=== PATIENT | male | born 1945 ===

== ENCOUNTER 2025-04-22 10:50 | Outpatient (AMB) | payer MEDICARE, OTHER, SELFPAY ==
[2025-04-22 10:58] VITALS: BP 147/78; PULSE 79; RESP 18; O2SAT 98; BMI 27.0
--- NOTE | 2025-04-22 10:58 | A.OFFVIS_ITS ---
Vital Signs 04/22/25 10:58 Height 5 ft 8 in Weight 177 lb 8 oz BMI 27.0 BP 147/78 H Blood Pressure Location Lt brachial Position Sitting Respiration 18 Pulse 79 Pulse Source Pulse Oximeter Pulse Oximetry (%) 98 Oxygen Delivery Method Room Air Intake Visit Reasons: Sacrolitis not elsewhere classified Allergies No Known Allergies Allergy (Verified 04/22/25 11:00) HPI Comments Details: Luis is very pleasant 80 years old gentleman who presents in my office with complains on very minor discomfort in the area of the right hip. He also states that he had a pain in the projection of the sacroiliac joint in the past but he received injection from Dr. Gama in November of 2024 and now he experiences no pain in the sacroiliac joint. He also received the injection into the right hip area however he states that this right hip area injection did not help him and he still experiences minor discomfort there. In fact he was referred here by Dr. Gama to have sacroiliac joint fusion to be performed. According to this patient his pain is minimal at this time and he is able to sleep normally, he can do activities of daily living, he states that he can climb ladders, perform grass mowing and he tries to stay very active. He has sacroiliac joint belt in his possession but he refuses to wear it all the time and he is able to put it only when he is in bed. In terms of tissue damage he describes his pain as sore and aching sensation. He never had physical therapy. I offered him to send him to physical therapy but he adamantly refused. He stated that in the past he had physical therapy which was absolutely not helpful for him. He received oxycodone and Advil to help his pain. He reports that oxycodone eliminates all of his pains however he is not taking it because he is afraid of addiction. His past medical history significant for hypertension coronary artery disease conge stive heart failure and status post CABG and aortic valve replacement. He also had history of bilateral shoulder replacement and toe fusion. He is currently on Eliquis. He denies smoking cigarettes admits drinking 1 bottle of beer a week he denies recreational drugs and he drinks 1 cup of coffee a day. Review of Systems Const All systems reviewed & are unremarkable except as noted in HPI and below ENT Reports Normal hearing present Neuro Reports Normal hearing present, Denies Abnormal speech present, Denies confusion and Denies Sensory deficit (Neuro) Psych Denies confusion Physical Exam Vital Signs: Last Vital Signs Pulse 79 04/22/25 10:58 Resp 18 04/22/25 10:58 BP 147/78 H 04/22/25 10:58 Pulse Ox 98 04/22/25 10:58 Oxygen Delivery Method Room Air 04/22/25 10:58 BMI result Body Mass Index 27.0 Const General: no acute distress; No confusion Orientation/consciousness: patient oriented x3 and No confusion Eyes General: appearance normal, both eyes and all related structures Pupils: Equal, round and reactive pupils present EOM: EOMs intact bilaterally Neck Neck: Yes full ROM Chest Chest palpation & inspection: normal inspection of the chest Resp Effort & Inspection: normal respiratory effort, able to speak in complete sentences, normal respiratory pattern, no audible wheezes and no cough Cardio Jugular venous distension: no JVD GI Inspection: Yes normal to inspection Back/Spine/Pelvis Other: No tenderness on palpation in the projection of the left sacroiliac joint, there is minor tenderness on palpation in the projection slightly posterior of the trochanter on the right. Neuro General: patient oriented x3, gait normal and No confusion Cranial nerves: Yes CN's II-XII intact bilaterally, Yes Equal, round and reactive pupils present, Yes Normal hearing present and Yes Ability to bilaterally elevate shoulders present Speech: No Abnormal speech present Gait exam (Neuro): Normal gait present Motor exam (neuro): 5/5 motor strength present throughout Sensory Exam: No Sensory deficit (Neuro) Extrem General: No pedal edema Psych Speech and movement: Normal speech and movement present Affect: normal affect Attitude: cooperative Thought process: Normal thought process present Thought content: Normal thought content present Insight: Good insight present (Psych) Judgement: Good judgement present (Psych) Assessment & Plan Assessment & Plan (1) Chronic left SI joint pain: Code(s): M53.3 - Sacrococcygeal disorders, not elsewhere classified; G89.29 - Other chronic pain Category: Medical (2) Sacroiliitis: Code(s): M46.1 - Sacroiliitis, not elsewhere classified Category: Medical (3) Trochanteric bursitis: Code(s): M70.60 - Trochanteric bursitis, unspecified hip Category: Medical (4) Iliotibial band syndrome, left leg: Code(s): M76.32 - Iliotibial band syndrome, left leg Category: Medical Plan It looks like that injection the patient received in November of this year from Dr. Gama is still working and he does not experience any discomfort from the left SI joint. He has pain in the projection of the right trochanter but he states that this pain is no more than just a nuisance and he can not tolerated. I offered him to go for physical therapy for this condition but he refused. I told him that if he would start to feel sacroiliac joint pain again on the left he is welcome to come back and we will discuss sacroiliac joint fusion. However if patient would decide to go for the fusion I would need to have a conservation officer clearance to permit me to stop his Eliquis for 4 days. Coding Level of Care Code New Pt Level 3 (97497) Diagnoses Chronic left SI joint pain M53.3; G89.29 Sacroiliitis M46.1 Trochanteric bursitis M70.60 Iliotibial band syndrome, left leg M76.32
--- OUTSIDE RECORDS SUMMARY | 2025-04-22 13:36 | XMS_ITS | Encounter Summary ---
Author Organization [facility] Address [address] [facility] [address] [place] [address] Phone Care Team Providers Care Fluxer Name Role Phone Alan Oconnor MD Primary Care Provider Florina Bellamy Primary Care Provider [phone] Florina Bellamy Unavailable [phone] Encounter Details Date Type Department Care Team (Late st Contact Info) Description 08/15/2022 Procedure Pass Echo Lab [address] [place] [address] Social History Tobacco Use Types Packs/Day Years Used Date Smoking Tobacco: Former Cigars Smokeless Tobacco: Never Alcohol Use Standard Drinks/Week Comments Yes 0 (1 standard drink = 0.6 oz pur e alcohol) 3 beers a week Sex and Gender Information Value Date Recorded Sex Assigned at Not on file Legal Sex Male 10:06 PM EDT Gender Identity Not on file Sexual Orientation Not on file documented as of this encounter Plan of Treatment Upcoming Encounters Date Type Department Care Team (Latest Contact Info) Description 05/18/2025 11:20 AM EDT Ancillary Procedure [facility] [address] [place] [address] 3rd Floor, [address] [place], [place] [phone] Keshawn Flaherty MD [address] [facility], [address] [place] [address] [phone] [email or web address] documented as of this encounter Visit Diagnoses Not on filedocumented in this encounter Care Teams Fluxer Relationship Specialty Start Date End Date Alan Oconnor MD [address] [place] [address] [email or web address] PCP - General 05/17/17 05/24/23 Florina Bellamy [address] [place] [address], [address] [place] [address] [email or web address] PCP - General Family Medicine 05/25/23 Florina Bellamy [address] [place] [address], [address] [place] [address] [email or web address] Insurance Assigned Provider 11/02/24 documented as of this encounter Additional Source Comments The information contained in this document represents components of the legal health record. It is not the complete legal health record.[facility]
--- OUTSIDE RECORDS SUMMARY | 2025-04-22 13:36 | XMS_ITS | Clinical Summary ---
Author Organization [facility] Address [facility] [place] [address] Care Team Providers Care Instruction Dean Name Role Phone None Primary Care Provider Unavailabl e Allergies No known active allergies Medications levothyroxine (SYNTHROID) 137 mcg tablet 07/07/2010 Active aspirin 81 mg EC tablet 07/07/2010 Active vitamin E 400 unit capsule 07/07/2010 Active ascorbic acid (VITAMIN C) 500 mg tablet 07/07/2010 Active SAW PALMETTO ORAL 07/07/2010 Active co-enzyme Q-10 (CO Q-10) 50 mg capsule 07/07/2010 Active OXYcodone (ROXICODONE) 5 mg immediate release tablet 5M-3 tabs Tablet(s), PO, Q4H PRN 07/07/2010 Active amoxicillin (AMOXIL) 500 mg capsule 2000 MG = 4 Capsule(s) , PO, X 1 07/13/2010 Active Immunizations Immunization Administration Dates Next Due Influenza Vaccine, Whole 04/29/2009 Social History Tobacco Use Types Packs/Day Years Used Date Smoking Tobacco: Never Assessed Sex and Gender Information Value Date Recorded Sex Assigned at Not on file Legal Sex Male 7:14 AM EST Gender Identity Not on file Sexual Orientation Not on file Plan of Treatment Health Maintenance Due Date Last Done Comments Hepatitis C Screening 1963 Tetanus/Diphtheria/Pertussis Vaccines (1 - Tdap) 03/02 Pneumoccocal Vaccine: 50+ (1 of 1 - PCV) 1997 Zoster vaccine (1 of 2) 1997 Advance Directive 2002 RSV Vaccine (1 - 1-dose 75+ series) 2022 Covid-19 Vaccine ( season) 2025 Influenza (Flu) vaccine (1 o f 1 - Influenza standard series) 03/30/2025 04/29/2009 Care Teams Instruction Dean Relationship Specialty Start Date End Date None None PCP - General 08/08/24
--- OUTSIDE RECORDS SUMMARY | 2025-04-22 13:36 | XMS_ITS | Encounter Summary ---
Author Organization [facility] Address [address] [facility] [address] [place] [phone] Phone Care Team Providers Care Mandarin Speaking Nanny Name Role Phone Florina Bellamy Primary Care Provider [phone] Florina Bellamy Unavailable [phone] Encounter Details Date Type Department Care Team (Late st Contact Info) Description 02/11/2025 Procedure Pass Echo Lab [place] [place] [address] Social History Tobacco Use Types Packs/Day Years Used Date Smoking Tobacco: Former Cigars Q uit: 2018 Smokeless Tobacco: Never Comments:Smoked a cigar ever y once in a while. Alcohol Use Standard Drinks/Week Comments Yes 0 (1 standard drink = 0.6 oz pur e alcohol) 3 beers a week Home Health Assessment: Transportation Answer Date Recorded Lack of Transportation (Medical) No 12/05/2024 Lack of Transportation (Non-Medical) No 12/05/2024 Patient Unable or Declines to Respond No 12/05/2024 Child or Family Care Answer Date Record ed Do you have problems with on e of the following making it difficult for you to work, study, or receive health care? No 11/01/2023 Education Answer Date Recorded Are you interested in more education? Not on adolof e 11/24/2022 Are you concerned about learning? Not on file 11/24/2022 No 11/24/2022 No 11/24/2022 Food Answer Date Recorded Within the past 6 months we worried whether our food would run out before we got money to buy more. Never True 11/01/2023 Within the past 6 months the food we bought just didn't last and we didn't have enough money to get more. Never True Residential Stability Answer Date Recor ded What is your housing situation today? I have rachele sing 11/01/2023 How many times have you move d in the past 12 months? Zero (I did not move) 11/01/2023 Paying for Meds Answer Date Recorded Do you have trouble paying for medicines? No 11/01/2023 Paying Utility Bills Answer Date Record ed Do you have trouble paying your heating or elect ricity bill? No 11/01/2023 Transportation Answer Date Recorded Has the lack of transportati on kept you from medical appointments or from getting medications? No 11/01/2023 Digital Access Answer Date Recorded Yes 11/01/2023 No 11/01/2023 Do you have reliable internet access at home? No 11/01/2023 Do you have a device (e.g., phone, tablet, computer) with a working camera? No 11/01/2023 Intimate Partner Violence Answer Date R ecorded Denied Basic Needs Not on file 11/10/2024 In the past 12 months have y ou been in a relationship with a person who hurts, threatens, or tries to control you? No 11/10/2024 Worried food would run out Not on file 11/10 In the past 12 months have y ou been in a relationship with a person who hurts, threatens, or tries to control you? No 11/10/2024 Sex and Gender Information Value Date Recorded Sex Assigned at Not on file Legal Sex Male 10:06 PM EDT Gender Identity Not on file Sexual Orientation Not on file documented as of this encounter Plan of Treatment Upcoming Encounters Date Type Department Care Team (Latest Contact Info) Description 05/18/2025 11:20 AM EDT Ancillary Procedure [facility] [address] [place] [address] [address]rd Floor, [address] [place] [address] Keshawn Flaherty MD [address] [facility], [address] [place], [place] [phone] [email or web address] documented as of this encounter Visit Diagnoses Not on filedocumented in this encounter Additional Health Concerns Assessment Noted Time PHQ-2 Depression Total Score: 0 11/11/19 25 10:13 AM EDT documented as of this encounter Care Teams Mandarin Speaking Nanny Relationship Specialty Start Date End Date Florina Bellamy [address] [place] [address], [address] [place] [address] [email or web address] PCP - General Family Medicine 05/25/23 Florina Bellamy [address] [place] [address], [address] [place] [address] [email or web address] Insurance Assigned Provider 11/02/24 documented as of this encounter Additional Source Comments The information contained in this document represents components of the legal health record. It is not the complete legal health record.[facility]
--- OUTSIDE RECORDS SUMMARY | 2025-04-22 13:36 | XMS_ITS | Encounter Summary ---
Author Organization [facility] Address [address] [facility] [address] [place] [address] Phone Care Team Providers Care Protein Chemist Name Role Phone Florina Bellamy Primary Care Provider Florina Bellamy Unavailable [phone] Encounter Details Date Type Department Care Team (Late st Contact Info) Description 11/02/2023 Procedure Pass Echo Lab [place] [place] [address] Social History Tobacco Use Types Packs/Day Years Used Date Smoking Tobacco: Former Cigars Q uit: 2018 Smokeless Tobacco: Never Comments:Smoked a cigar ever y once in a while. Alcohol Use Standard Drinks/Week Comments Yes 0 (1 standard drink = 0.6 oz pur e alcohol) 3 beers a week Child or Family Care Answer Date Record ed Do you have problems with on e of the following making it difficult for you to work, study, or receive health care? No 11/01/2023 Education Answer Date Recorded Are you interested in more education? Not on adolfo e 11/24/2022 Are you concerned about learning? [...] your housing situation today? I have rachele madison 11/01/2023 How many times have you move [...] ecorded Denied Basic Needs Not on file 08/02/2023 In the past 12 months have y ou been in a relationship with a person who hurts, threatens, or tries to control you? No 08/02/2023 Worried food would run out Not on file 08/02 In the past 12 months have y ou been in a relationship with a person who hurts, threatens, or tries to control you? No 08/02/2023 Sex and Gender Information Value Date Recorded Sex Assigned at Not on file Legal Sex Male 10:06 PM EDT Gender Identity Not on file Sexual Orientation Not on file documented as of this encounter Plan of Treatment Upcoming Encounters Date Type Department Care Team (Latest Contact Info) Description 05/18/2025 11:20 AM EDT Ancillary Procedure [facility] [address] [place] [address] [address]rd Floor, [address] [place] [address] Keshawn Flaherty MD [address] [facility], [address] [place] [address] [email or web address] documented as of this encounter Visit Diagnoses Not on filedocumented in this encounter Additional Health Concerns Assessment Noted Time PHQ-2 Depression Total Score: 0 11/01/19 24 10:24 AM EDT documented as of this encounter Care Teams Protein Chemist Relationship Specialty Start Date End Date Florina Bellamy [address] [facility], [address] [place] [address] [email or web address] PCP - General Family Medicine 05/25/23 Florina Bellamy [address] [facility], [address] [place] [address] [email or web address] Insurance Assigned Provider 11/02/24 documented as of this encounter Additional Source Comments The information contained in this document represents components of the legal health record. It is not the complete legal health record.[facility]
--- OUTSIDE RECORDS SUMMARY | 2025-04-22 13:38 | XMS_ITS | Encounter Summary ---
Author Organization [facility] Address [address] [facility] [address] [place] [address] Phone Care Team Providers Care Pipe And Test Supervisor Name Role Phone Florina Bellamy Primary Care Provider Florina Bellamy Unavailable [phone] Encounter Details Date Type Department Care Team ([facility] Contact Info) Description 09/23/2024 Procedure Pass [facility] [address] [place] [address] Social History Tobacco Use Types Packs/Day Years [...] Description 05/18/2025 11:20 AM EDT Ancillary Procedure [facility] [address] [place] [address] 3rd Floor, [address] [place] [address] Keshawn Flaherty MD [address] [facility], [address] [place] [address] [email or web address] documented as of this encounter Visit Diagnoses Not on filedocumented in this encounter Additional Health Concerns Assessment Noted Time PHQ-2 Depression Total Score: 0 11/01/19 24 10:24 AM EDT documented as of this encounter Care Teams Pipe And Test Supervisor Relationship Specialty Start Date End Date Florina Bellamy [address] [facility], [address] [place] [address] [email or web address] PCP - General Family Medicine 05/25/23 Florina Bellamy [address] [facility], [address] [place] [address] [email or web address] Insurance Assigned Provider 11/02/24 documented as of this encounter Additional Source Comments The information contained in this document represents components of the legal health record. It is not the complete legal health record.[facility]
--- OUTSIDE RECORDS SUMMARY | 2025-04-22 13:38 | XMS_ITS | Encounter Summary ---
Author Organization [facility] Address [address] [facility] [address] [place] [address] Phone Care Team Providers Care Boarder Machine Name Role Phone Alan Oconnor MD Primary Care Provider [phone] Florina Bellamy Primary Care Provider [phone] Florina Bellamy Unavailable [phone] Reason for Referral * Outpatient Procedure - Closed Specialty Diagnoses / Procedures Referred By Ciaran swanson Referred To Contact Diagnoses Aortic valve stenosis with insufficiency, unspecified etiology Procedures Adult Echo TTE Alan Oconnor MD Phone: tel: fax: [email or web address] Referral ID Status Reason Start Date Expiration Date Visits Re quested Visits Authorized [id number] Closed 08/15/2022 08/15/2023 1 1 Encounter Details Date Type Department Care Team (Latest Contact Info) Description 08/15/2022 Transcribe Orders Virtual Department [address] [place] [address] Alan Oconnor MD [address] [place] [id number] [email or web address] Aortic valve stenosis with insufficiency, unspecified etiology Social History Tobacco Use Types Packs/Day Years [...] Description 05/18/2025 11:20 AM EDT Ancillary Procedure [facility] [address] [place] [address] [address]rd Floor, [address] [place] [address] Keshawn Flaherty MD [address] [place] [address], [address] [place] [address] [email or web address] documented as of this encounter Results * TTE COMPREHENSIVE (11/15/2022 1:14 PM EDT) Anatomical Region Laterality Modality Heart Ultrasound Narrative 11/16/2022 4:23 PM EDT See scanned report Procedure Note Remberto Frazier MD - 11/16/2022 See scanned report us Alan Oconnor MD CV ECHO ORDERABLES Final Res ult documented in this encounter Visit Diagnoses Diagnosis Aortic valve stenosis with insufficiency, unspecified etiology Aortic valve stenosis with insufficiency, unspecified etiology documented in this encounter Care Teams Boarder Machine Relationship Specialty Start Date End Date Alan Oconnor MD [address] [place] [address] [email or web address] PCP - General 05/17/17 05/24/23 Florina Bellamy [address] [place] [address], [address] [place] [address] [email or web address] PCP - General Family Medicine 05/25/23 Florina Bellamy [address] [place] [address], [address] [place] [address] [email or web address] Insurance Assigned Provider 11/02/24 documented as of this encounter Additional Source Comments The information contained in this document represents components of the legal health record. It is not the complete legal health record.[facility]
--- OUTSIDE RECORDS SUMMARY | 2025-04-22 13:38 | XMS_ITS | Clinical Summary ---
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 Compared to prior TTE report on 09/21/2024, IAS/IVS The interatrial septum appears normal. There is no evidence of patent foramen ovale (PFO). The interventricular septum appears normal. [facility] CV ECHO ORDERABLES Final Result * Outside Imaging Report Only (02/12/2025 11:07 AM EDT) Historical Provider IMG XR CHEST Edited Re sult - Final * (ABNORMAL) PT-INR (02/06/2025 11:54 AM EDT) PT 16.4(H) 10.2 - 12.9 sec [facility] INR 1.3(H) 0.9 - 1.1 [facility] Comment:Therapeutic range fo r oral Vitamin K antagonists: 2.0-3.5 Blood 02/06/2025 11:5 4 AM EDT 02/06/2025 11:59 AM EDT Keshawn Flaherty MD LAB BLOOD ORDERABLES Final Result [facility] [address] [place] [address] * (ABNORMAL) CBC and differential (02/06/2025 11:54 AM EDT) WBC 13.56(H) 4.00 - 11.00 K/uL [facility] RBC 4.34(L) 4.50 - 5.90 M/uL [facility] HGB 13.4(L) 13.5 - 17.5 g/dL [facility] HCT 40.8(L) 41.0 - 53.0 % [facility] PLT 140(L) 150 - 450 K/uL [facility] MCV 94.0 80.0 - 100.0 fL [facility] MCH 30.9 27.0 - 31.0 pg [facility] MCHC 32.8 32.0 - 36.0 g/dL [facility] RDW 14.0 11.5 - 14.5 % [facility] MPV 11.2 8.4 - 12.0 fL [facility] NRBC 0.00 0.00 /100 WBCs [facility] ABSOLUTE NRBC 0.00 0.00 K/uL [facility] DIFF METHOD Auto [facility] NEUTS 36.0(L) 48.0 - 76.0 % [facility] LYMPHS 52.3(H) 18.0 - 41.0 % [facility] Comment:many atypical lymphs few smudge cells MONOS 9.7 4.0 - 11.0 % [facility] EOS 1.1 0.0 - 5.0 % [facility] BASOS 0.4 0.0 - 1.5 % [facility] Granulocytes, immature (%) 0.5 0.0 - 0.9 % [facility] ABSOLUTE NEUTS 4.88 1.92 - 7.60 K/uL [facility] ABSOLUTE LYMPHS 7.09(H) 0.72 - 4.10 K/uL [facility] ABSOLUTE MONOS 1.32(H) 0.16 - 1.10 K/uL [facility] ABSOLUTE EOS 0.15 0.00 - 0.50 K/uL [facility] ABSOLUTE BASOS 0.05 0.00 - 0.15 K/uL [facility] Granulocytes, immature 0.07 0.00 - 0.09 K/uL [facility] Blood 02/06/2025 11:5 4 AM EDT 02/06/2025 11:59 AM EDT us Keshawn Flaherty MD LAB BLOOD ORDERABLES Final Result [address] [address] * (ABNORMAL) Basic metabolic panel (02/06/2025 11:54 AM EDT) [facility] SODIUM 137 133 - 146 mmol/L [facility] CHLORIDE 100 96 - 108 mmol/L [facility] POTASSIUM 4.6 3.3 - 5.1 mmol/L [facility] CO2 29 21 - 35 mmol/L [facility] BUN 18 6 - 19 mg/dL [facility] CREATININE 0.80 0.5 - 1.5 mg/dL [facility] GLUCOSE 125(H) 70 - 99 mg/dL [facility] CALCIUM 9.6 8.4 - 10.3 mg/dL [facility] EGFR 91 >59 mL/min/1.7 3m2 [facility] Comment:Estimated glomerular filtration rate calculated using the CKD-EPI refit equation. ANION GAP 13 10 - 20 mmol/L [facility] Blood 02/06/2025 11:5 4 AM EDT 02/06/2025 11:59 AM EDT us Keshawn Flaherty MD LAB BLOOD ORDERABLES Final Result Performing Organization Address [facility]/ZIP Co de Phone Number [address] [address] * TSH with reflex (11/15/2023 7:35 AM EDT) [facility] TSH 0.39 0.27 - 4.20 uIU/mL [facility] Blood 11/15/2023 7:35 AM EDT 11/15/2023 7:39 AM EDT us Florina Bellamy LAB BLOOD ORDERABLES Final Result Performing Organization Address [facility]/ZIP Co de Phone Number [address] [address] * Hepatitis C antibody, qualitative (11/15/2023 7:35 AM EDT) [facility] HCV NON-REACTIV E NON-REACTI VE [facility] Blood 11/15/2023 7:35 AM EDT 11/15/2023 7:39 AM EDT Florina Bellamy LAB BLOOD ORDERABLES Final Result [facility] [address] [place] [address] from Last 3 Months or Most Recently Relevant to Health Maintenance Insurance MEDICARE PART A & B Member Subscriber Plan / Payer (Ef fective 2012-Present) Name:Luis Prabhakar Member ID:[id number] Relation to Subscriber:Self Name:Luis Prabhakar Subscriber ID:[id number] Payer ID:[id number] Group ID:Not on file Type:Medicare Address: [facility] [employer] [facility] [address] [id number] [facility] MEDICARE SUPPLEMENT MEDICARE PART A & B [facility] MEDICARE SUPPLEMENT MEDICARE PART A & B [facility] MEDICARE SUPPLEMENT MEDICARE PART A & B [employer] MEDICARE SUPPLEMENT MEDICARE PART A & B [employer] MEDICARE SUPPLEMENT MEDICARE PART A & B MEDICARE SUPPLEMENT MEDICARE PART A & B [facility] EXTENSION MEDICARE SUPPLEMENT MEDICARE PART A & B [facility] [employer] MEDICARE SUPPLEMENT MEDICARE PART A & B [facility] [employer] MEDICARE SUPPLEMENT Advance Directives For more information, please contact: [phone] (9AM - 5PM [facility], Sunday-Sunday) Documents on File Type Date Recorded 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 It is not the complete legal health record.[facility]
--- OUTSIDE RECORDS SUMMARY | 2025-04-22 13:38 | XMS_ITS | Encounter Summary ---
Author Organization [facility] Address [address] [facility] [address] [place] [address] Phone Care Team Providers Care Retail Support Associate Name Role Phone Florina Bellamy Primary Care Provider Florina Bellamy Unavailable [phone] Encounter Details Date Type Department Care Team ([facility] st Contact Info) Description 10/30/2024 Procedure Pass [facility] [address] [place] [address] Social History Tobacco Use Types Packs/Day Years Used Date Smoking Tobacco: Former Cigars Q uit: 2018 Smokeless Tobacco: Never Comments:Smoked a cigar ever y once in a while. Alcohol Use Standard Drinks/Week Comments Yes 0 (1 standard drink = 0.6 oz pur e alcohol) 3 beers a week Home Health Assessment: Transportation Answer Date Recorded Lack of Transportation (Medical) No 10/29/2024 Lack of Transportation (Non-Medical) No 10/29/2024 Patient Unable or Declines to Respond No 10/29/2024 Child or Family Care Answer Date Record [...] Description 05/18/2025 11:20 AM EDT Ancillary Procedure [facility] [address] [place] [address] 3rd Floor, [address] [place] [address] Keshawn Flaherty MD [address] [facility], [address] [place] [address] [email or web address] documented as of this encounter Visit Diagnoses Not on filedocumented in this encounter Additional Health Concerns Assessment Noted Time PHQ-2 Depression Total Score: 0 11/01/19 24 10:24 AM EDT documented as of this encounter Care Teams Retail Support Associate Relationship Specialty Start Date End Date Florina Bellamy [address] [place] [address], [address] [place] [address] [email or web address] PCP - General Family Medicine 05/25/23 Florina Bellamy [address] [place] [address], [address] [place] [address] [email or web address] Insurance Assigned Provider 11/02/24 documented as of this encounter Additional Source Comments The information contained in this document represents components of the legal health record. It is not the complete legal health record.[facility]
--- OUTSIDE RECORDS SUMMARY | 2025-04-22 13:39 | XMS_ITS | Encounter Summary ---
Author Organization [facility] Address [address] [facility] [address] [place] [address] Phone Care Team Providers Care Instrument Assembly Supervisor Name Role Phone Alan Oconnor MD Primary Care Provider [phone] Florina Bellamy Primary Care Provider Florina Bellamy Unavailable [phone] Encounter Details Date Type Department Care Team (Latest Contact Info) Description 12/27/2017 Transcribe Orders [facility] [address] [place] [address] Alan Oconnor MD [address] [place] [address] [email or web address] Low T4 (Primary Dx); Abnormal LFTs Social History Tobacco Use Types Packs/Day Years [...] Description 05/18/2025 11:20 AM EDT Ancillary Procedure [facility] [address] [place] [address] 3rd Floor, [address] [place] [address] Keshawn Flaherty MD [address] [facility], [address] [place] [address] [email or web address] documented as of this encounter Results * (ABNORMAL) Urinalysis with sediment (12/27/2017 11:45 AM EDT) WBC 0-4(A) NONE SEEN /hpf [facility] RBC 0-2(A) NONE SEEN /hpf [facility] URINE EPITHELIAL 0-4(A) NONE SEEN [facility] MUCUS NONE SEEN NONE SEEN /hpf [facility] BACTERIA NONE SEEN NONE SEEN [facility] COLOR Yellow Yellow [facility] CLARITY Clear [facility] GLUCOSE Negative Negative [facility] BILI Negative Negative [facility] KETONES Negative Negative [facility] SPECIFIC GRAVITY 1.010 1.005 - 1.030 [facility] BLOOD Negative Negative [facility] PH 5.5 5.0 - 8.0 [facility] Protein-UA Negative Negative [facility] NITRITE Negative Negative [facility] Leukocyte esterase, ur Negative Negative [facility] Urine (Urine) 12/27/2017 11: 45 AM EDT 12/27/2017 11:50 AM EDT us Alan Oconnor MD URINE ORDERABLES Final Resul t Performing Organization Address City/[facility]/ZIP Co de Phone Number [address] [address] * Alanine aminotransferase (ALT) (12/27/2017 11:45 AM EDT) ALT 40 0 - 40 U/L [facility] Blood 12/27/2017 11:4 5 AM EDT 12/27/2017 11:50 AM EDT us Alan Oconnor MD LAB BLOOD ORDERABLES Final R esult Performing Organization Address [facility]/ZIP Co de Phone Number [address] [address] * (ABNORMAL) Aspartate aminotransferase (AST) (12/27/2017 11:45 AM EDT) AST 40(H) 0 - 37 U/L [facility] Blood 12/27/2017 11:4 5 AM EDT 12/27/2017 11:50 AM EDT us Alan Oconnor MD LAB BLOOD ORDERABLES Final R esult Performing Organization Address City/[facility]/ZIP Co de Phone Number [address] [address] * (ABNORMAL) TSH (12/27/2017 11:45 AM EDT) TSH 4.34(H) 0.27 - 4.20 uIU/mL [facility] Blood 12/27/2017 11:4 5 AM EDT 12/27/2017 11:50 AM EDT us Alan Oconnor MD LAB BLOOD ORDERABLES Final R esult Performing Organization Address City/[facility]/ZIP Co de Phone Number [address] [address] documented in this encounter Visit Diagnoses Diagnosis Low T4- Primary Nonspecific abnormal results of thyroid function study Abnormal LFTs documented in this encounter Care Teams Instrument Assembly Supervisor Relationship Specialty Start Date End Date Alan Oconnor MD [address] [place] [address] [email or web address] PCP - General 05/17/17 05/24/23 Florina Bellamy [address] [place] [address], [address] [address] [email or web address] PCP - General Family Medicine 05/25/23 Florina Bellamy [address] [place] [address], [address] [address] [email or web address] Insurance Assigned Provider 11/02/24 documented as of this encounter Additional Source Comments The information contained in this document represents components of the legal health record. It is not the complete legal health record.[facility]
--- OUTSIDE RECORDS SUMMARY | 2025-04-22 13:41 | XMS_ITS | Encounter Summary ---
Author Organization [facility] Address [address] [facility] [address] [place] [address] Phone Care Team Providers Care Entry Level Marketing Assistant Name Role Phone Alan Oconnor MD Primary Care Provider Florina Bellamy Primary Care Provider Florina Bellamy Unavailable [phone] Encounter Details Date Type Department Care Team (Latest Contact Info) Description 07/02/2018 Transcribe Orders [address] [address] Alan Oconnor MD [address] [place] [address] [email or web address] Abnormal LFTs (Primary Dx) Social History Tobacco Use Types Packs/Day Years Used Date Smoking Tobacco: Never Smokeless Tobacco: Never Sex and Gender Information Value Date Recorded Sex Assigned at Not on file Legal Sex Male 10:06 PM EDT Gender Identity Not on file Sexual Orientation Not on file documented as of this encounter Plan of Treatment Upcoming Encounters Date Type Department Care Team (Latest Contact Info) Description 05/18/2025 11:20 AM EDT Ancillary Procedure [facility] [address] [place] [address] 3rd Floor, [address] [place] [address] Keshawn Flaherty MD [address] [facility], [address] [place] [address] [email or web address] documented as of this encounter Results * (ABNORMAL) Alanine aminotransferase (ALT) (07/02/2018 7:39 AM EST) ALT 49(H) 0 - 40 U/L [facility] Blood 07/02/2018 7:39 AM EST 07/02/2018 8:13 AM EST us Alan Oconnor MD LAB BLOOD ORDERABLES Final R esult Performing Organization Address City/[facility]/ZIP Co de Phone Number [address] [address] * Aspartate aminotransferase (AST) (07/02/2018 7:39 AM EST) AST 37 0 - 37 U/L [facility] Blood 07/02/2018 7:39 AM EST 07/02/2018 8:13 AM EST us Alan Oconnor MD LAB BLOOD ORDERABLES Final R esult Performing Organization Address [facility]/ZIP Co de Phone Number [address] [address] * (ABNORMAL) Hemoglobin A1c (07/02/2018 7:39 AM EST) HEMOGLOBIN A1C 6.0(H) 4.3 - 5.8 % [facility] Blood 07/02/2018 7:39 AM EST 07/02/2018 8:13 AM EST us Alan Oconnor MD LAB BLOOD ORDERABLES Final R esult Performing Organization Address [facility] Co de Phone Number [address] [address] * (ABNORMAL) Glucose (07/02/2018 7:39 AM EST) GLUCOSE 113(H) 70 - 99 mg/dL [facility] Blood 07/02/2018 7:39 AM EST 07/02/2018 8:13 AM EST us Alan Oconnor MD LAB BLOOD ORDERABLES Final R esult [facility] [address] [place] [address] documented in this encounter Visit Diagnoses Diagnosis Abnormal LFTs- Primary documented in this encounter Care Teams Entry Level Marketing Assistant Relationship Specialty Start Date End Date Alan Oconnor MD [address] [place] [address] [email or web address] PCP - General 05/17/17 05/24/23 Florina Bellamy [address] [place] [address], [address] [place] [address] [email or web address] PCP - General Family Medicine 05/25/23 Florina Bellamy [address] [place] [address], [address] [place] [address] [email or web address] Insurance Assigned Provider 11/02/24 documented as of this encounter Additional Source Comments The information contained in this document represents components of the legal health record. It is not the complete legal health record.[facility]
--- OUTSIDE RECORDS SUMMARY | 2025-04-22 13:41 | XMS_ITS | Encounter Summary ---
Author Organization [facility] Address [address] [facility] [address] [place] [address] Phone Care Team Providers Care Show Card Letterer Name Role Phone Alan Oconnor MD Primary Care Provider Florina Bellamy Primary Care Provider Florina Bellamy Unavailable [phone] Encounter Details Date Type Department Care Team (Latest Contact Info) Description 12/07/2017 Transcribe Orders [address] [address] Alan Oconnor MD [address] [place] [address] [email or web address] Hypertension, unspecified type (Primary Dx); Low T4 Social History Tobacco Use Types Packs/Day Years [...] Description 05/18/2025 11:20 AM EDT Ancillary Procedure [facility] [address] [facility] 3rd Floor, [address] [place] [address] Keshawn Flaherty MD [address] [facility], [address] [place] [address] [email or web address] documented as of this encounter Results * (ABNORMAL) TSH (12/07/2017 7:29 AM EDT) TSH 5.97(H) 0.27 - 4.20 uIU/mL [facility] Blood 12/07/2017 7:29 AM EDT 12/07/2017 7:59 AM EDT us Alan Oconnor MD LAB BLOOD ORDERABLES Final R esult [address] [address] * PSA (screening) (12/07/2017 7:29 AM EDT) Pathologist [facility] PSA 1.90 0 - 4.00 ng/mL [facility] Blood 12/07/2017 7:29 AM EDT 12/07/2017 8:00 AM EDT us Alan Oconnor MD LAB BLOOD ORDERABLES Final R esult [address] [address] * (ABNORMAL) CBC and differential (12/07/2017 7:29 AM EDT) Pathologist [facility] WBC 5.53 3.40 - 11.20 K/uL [facility] RBC 4.72 4.50 - 5.50 M/uL [facility] HGB 15.2 13.0 - 17.0 g/dL [facility] HCT 45.1 40.0 - 51.0 % [facility] PLT 145 130 - 400 K/uL [facility] MCV 95.6 79.0 - 98.0 fL [facility] MCH 32.2 27.0 - 34.8 pg [facility] MCHC 33.7 31.5 - 36.0 g/dL [facility] RDW 11.9 10.8 - 14.6 % [facility] MPV 10.5 9.4 - 12.4 [facility] NRBC 0.00 /100 WBCs [facility] ABSOLUTE NRBC 0.00 K/uL [facility] DIFF METHOD Auto [facility] NEUTS 48.9 45.30 - 77.70 % [facility] LYMPHS 35.4 12.30 - 39.70 % [facility] MONOS 12.8 4.10 - 12.80 % [facility] EOS 2.0 0 - 7.2 % [facility] BASOS 0.5 0 - 2.80 % [facility] Granulocytes, immature (%) 0.4 0.0 - 0.9 % [facility] ABSOLUTE NEUTS 2.70 1.40 - 7.70 K/uL [facility] ABSOLUTE LYMPHS 1.96 0.60 - 3.20 K/uL [facility] ABSOLUTE MONOS 0.71(H) 0.11 - 0.59 K/uL [facility] ABSOLUTE EOS 0.11 0.01 - 0.50 K/uL [facility] ABSOLUTE BASOS 0.03 0.00 - 0.08 K/uL [facility] Granulocytes, immature 0.02 0.00 - 0.05 K/uL [facility] Blood 12/07/2017 7:29 AM EDT 12/07/2017 7:59 AM EDT us Alan Oconnor MD LAB BLOOD ORDERABLES Final R esult [facility] [address] [place], [place] [id number] * (ABNORMAL) Lipid panel (12/07/2017 7:29 AM EDT) HDL 47 mg/dL [facility] Comment: Interpretation: Risk Level Males Decreased >45 mg/dL Average 40-45 mg/dL Increased <40 mg/dL CHOLESTEROL 215 0 - 240 mg/dL [facility] TRIGLYCERIDES 66 30 - 160 mg/dL [facility] LDL 155(H) 50 - 129 mg/dL [facility] Comment: LDL levels in terms of risk for coronary heart disease: <100 mg/dL: Optimal 100-129 mg/dL: Near or above optimal 130-159 mg/dL: Borderline high 160-189 mg/dL: High >190 mg/dL: Very High CARDIAC RISK RATIO 4.6 3.4 - 5.0 C [facility] Blood 12/07/2017 7:29 AM EDT 12/07/2017 7:59 AM EDT us Alan Oconnor MD LAB BLOOD ORDERABLES Final R esult [address] [address] * (ABNORMAL) Comprehensive metabolic panel (12/07/2017 7:29 AM EDT) SODIUM 140 133 - 146 mmol/L [facility] POTASSIUM 4.5 3.3 - 5.1 mmol/L [facility] CHLORIDE 102 96 - 108 mmol/L [facility] CO2 28 21 - 35 mmol/L [facility] BUN 17 6 - 19 mg/dL [facility] CREATININE 0.90 0.5 - 1.5 mg/dL [facility] GLUCOSE 108(H) 70 - 99 mg/dL [facility] ALBUMIN 4.3 3.9 - 4.8 g/dL [facility] TOTAL PROTEIN 7.4 6.5 - 8.0 g/dL [facility] CALCIUM 9.4 8.4 - 10.3 mg/dL [facility] ALKALINE PHOSPHATASE 48 39 - 117 U/L [facility] TOTAL BILIRUBIN 0.6 0.0 - 1.2 mg/dL [facility] AST 38(H) 0 - 37 U/L [facility] ALT 42(H) 0 - 40 U/L [facility] GLOBULIN 3.1 1 - 4.8 g/dL [facility] EGFR 86 >59 mL/min/1.7 3m2 [facility] Comment:If patient is black, multiply result by 1.159. The eGFR calculation has changed from the MDRD equation to the CKD-EPI equation as of October 02, 2017. ANION GAP 15 10 - 20 mmol/L [facility] Blood 12/07/2017 7:29 AM EDT 12/07/2017 7:59 AM EDT us Alan Oconnor MD LAB BLOOD ORDERABLES Final R esult [facility] [address] [place] [address] documented in this encounter Visit Diagnoses Diagnosis Hypertension, unspecified type- Primary Low T4 Nonspecific abnormal results of thyroid function study documented in this encounter Care Teams Show Card Letterer Relationship Specialty Start Date End Date Alan Oconnor MD [address] [place] [address] [email or web address] PCP - General 05/17/17 05/24/23 Florina Bellamy [address] [place] [address], [address] [place] [address] [email or web address] PCP - General Family Medicine 05/25/23 Florina Bellamy [address] [place] [address], [address] [place] [address] [email or web address] Insurance Assigned Provider 11/02/24 documented as of this encounter Additional Source Comments The information contained in this document represents components of the legal health record. It is not the complete legal health record.[facility]
== END 2025-04-22 11:26 | disposition home or self-care (01) ==
PROVIDERS: PCP Physical Medicine & Rehabilitation; Visit Provider Anesthesiology
DX: M53.3 Sacrococcygeal disorders, not elsewhere classified (principal); G89.29 Other chronic pain; M46.1 Sacroiliitis, not elsewhere classified; M70.60 Trochanteric bursitis, unspecified hip; M76.32 Iliotibial band syndrome, left leg
CPT/HCPCS: 99203

== ENCOUNTER → 2025-04-22 10:50 | Outpatient (BNVA) | payer MEDICARE, OTHER, SELFPAY | PROVIDERS: PCP Physical Medicine & Rehabilitation; Visit Provider Anesthesiology | DX: M53.3 Sacrococcygeal disorders, not elsewhere classified (principal); M46.1 Sacroiliitis, not elsewhere classified; M70.61 Trochanteric bursitis, right hip; G89.29 Other chronic pain; Z87.39 Personal history of other diseases of the musculoskeletal system and connective tissue; Z98.890 Other specified postprocedural states | CPT/HCPCS: 99202 ==